=== PATIENT | female | born 1945 | race Caucasian/White ===

== ENCOUNTER 2018-08-09 12:36 | Inpatient (IN) | payer OTHER ==
[~2018-08-09] VITALS: Ht 165.1 cm; Wt 78.0 kg
[2018-08-09 12:37] VITALS: BP 143/83
[2018-08-09 13:07] LABS: ABSOLUTE EOSINOPHILS 0.1 thou/uL (0.0-0.7); ABSOLUTE MONOCYTES 0.5 thou/uL (0.0-1.2); ABSOLUTE NEUTROPHILS 7.9 thou/uL (1.6-8.1); HEMATOCRIT 31.6 % (37.0-47.0); HEMOGLOBIN 10.2 gm/dL (12.0-15.0); LYMPHOCYTES 10.1 %; MCH 26.8 pg (26.0-34.0); MCHC 32.2 g/dL (28.0-37.0); MCV 83.2 fL (80.0-100.0); MONOCYTES 5.4 %; MPV 7.8 fl. (7.2-11.1); NUCLEATED RBCS 0 /100WBC; PLATELET COUNT* 554 thou/uL (150-400); POLYS 83.5 %; RDW-CV 19.3 % (10.5-14.5); WBC 9.4 thou/uL (4.0-11.0)
[2018-08-09] MEDS ORDERED: LOSARTAN-HCTZ1 EAC3 PO (13:10)
[2018-08-09] MEDS ORDERED: BREO ELLIPTA 11 EACH INH (13:10)
[2018-08-09] MEDS ORDERED: INCRUSE ELLI62.5 MCG INH (13:11)
[2018-08-09 13:15] LABS: INR 1.4; PROTIME 13.9 Seconds (9.20-11.50)
[2018-08-09 13:16] LABS: ANION GAP 5 mmol/L (7-16); BUN 16 mg/dL (7-18); CALCIUM 9.6 mg/dL (8.5-10.1); CHLORIDE 95 mmol/L (98-107); CO2 34 mmol/L (21-32); GLUCOSE 106 mg/dL (70-99); POTASSIUM 3.5 mmol/L (3.5-5.1); SODIUM 134 mmol/L (136-145)
[2018-08-09] MEDS ORDERED: XARELTO15 MG PO (13:22)
[2018-08-09] MEDS ORDERED: FLOMAX0.4 MG PO (13:22)
[2018-08-09] MEDS ORDERED: XARELTO20 MG PO (13:22)
[2018-08-09] MEDS ORDERED: CLOTRIMAZOLE10 MG PO (13:23)
[2018-08-09] MEDS ORDERED: IPRAT-ALBUT 0.5-3 ML INH (13:24)
[2018-08-09] MEDS ORDERED: TESSALON PERLE100 MG PO (13:25)
[2018-08-09] MEDS ORDERED: MAGIC MOUTHWASH SWISH&SPIT (13:25)
[2018-08-09] MEDS ORDERED: TYLENOL EXTRA500 MG PO (13:26)
[2018-08-09] MEDS ORDERED: FLORASTOR250 MG PO (13:26)
[2018-08-09 13:27] LABS: ALBUMIN 3.2 g/dL (3.4-5.0); ALKALINE PHOSPHATASE 79 U/L (46-116); LIPASE 183 U/L (73-393); MAGNESIUM 1.8 mg/dL (1.8-2.4); NT-PRO BRAIN NAT PEPTIDE 78 pg/mL (<300); SGOT 24 U/L (15-37); SGPT 25 U/L (30-65); TOTAL BILIRUBIN 0.4 mg/dL (<0.1-1.0); TOTAL PROTEIN 7.2 g/dL (6.4-8.2); TROPONIN-I LEVEL <0.06 ng/mL (<0.06)
[2018-08-09] MEDS ORDERED: LIDOCAINE 2% PO (13:32)
[2018-08-09 14:32] VITALS: BP 120/61
[2018-08-09 15:22] VITALS: BP 132/60
[2018-08-09] MEDS ORDERED: BISCOLAX10 MG RECTAL (15:37)
[2018-08-09] MEDS ORDERED: HYDROCHLOROTHIA25 M2 PO (15:38)
[2018-08-09] MEDS ORDERED: MILK OF MA2400 MG/10 PO (15:38)
[2018-08-09] MEDS ORDERED: OXYCODONE HCL 55 MG PO (15:39)
[2018-08-09] MEDS ORDERED: VENTOLIN HFA 1818 GM INH (15:40)
[2018-08-09 16:00] VITALS: BP 129/64
--- NOTE | 2018-08-09 16:08 | NUR ---
RECIEVIED REPORT FROM JET RN IN ER OF EXPECTED ADMISSION AT 1425-DX: CHEST PAIN- PT ARRIVED TO ROOM 213 VIA BED AT 1500- ASSIST X1 TO BED FOR TRANSFER- PT A&O X4, ANXIOUS AT TIMES- CONTINENT VS INCONTINENT OF BOWEL AND BLADDER- STATES OCCASSIONAL BOWEL ACCIDENT R/T FREQUENT STOOLS LATELY- DIMINISHED LUNG SOUNDS NOTED, NON-PRODUCTIVE COUGH NOTED- VS 97.6 18 132/60 91 92% ON RA- ABD SOFT/ROUND/OBESE, BS X4 QUADS- LAST BM REPORTED THIS AM- IV NOTED TO LEFT HAND INTACT AND SL- TRACE EDEMA NOTED TO BLE- RECENT RIGHT HIP SURGERY NOTED EARLY JUL AT [facility], DRESSING NOTED TO RIGHT UPPPER THIGH DATED 08/07/18- PT STATES PAIN TO RIGHT HIP /10, UPPER MID ABD /10, AND MOUTH 10/10- REPORTS TO BE SENSATIVE TO NARCOTICS, PERFERS TYLENOL FOR PAIN- REDNESS NOTED TO BOTTOM WITH PICTURES OBTAINED AND PLACED ON CHART FOR VIEWING-HAS READING GLASSES AT BED SIDE- CARDIOLOGY CONSULTED AND HERE TO SEE PT SHORTLY AFTER ADMISSION- CALL LIGHT AND PERSONAL BELONGINGS WITH IN REACH- ISOLATION IN PLACE INDICATED R/T REPORTED LOOSE STOOLS, AWAITING STOOL SAMPLE- HOURLY ROUNDS IN PLACE R/T SAFETY/NEEDS- ALL NEEDS MET AT THIS TIME-WCTM
--- NOTE | 2018-08-09 17:19 | EKG ---
[place] [address] ELECTROCARDIOGRAM REPORT Name: JULIO PERES Room: [address] ADM IN M.R.#: [id number] Admission: 08/09/18 Attend Phys: Al Polk MD Discharge: Date of : 41 Report #: [id number] THIS REPORT FOR: //name// [facility] ED Test Date: 2018-08-09 Test Time: 12:40:11 Pat Name: JULIO PERES Department: Room: [facility] Gender: Route Sales Representative: Sharath SIMON : 1945 Requested By: Jose Yu Order Number: [id number] MD: Christiano Hardin Measurements Intervals [place] Rate: 96 P: 42 AL: 146 QRS: -12 QRSD: 88 T: 61 QT: 356 QTc: 450 Interpretive Statements Sinus rhythm Abnormal R-wave progression, late transition No previous ECG available for comparison Electronically Signed On 08-09-2018 17:19:26 DECORATING AND ASSEMBLY SUPERVISOR by Christiano Hardin [email or web address] <ELECTRONICALLY SIGNED> By: Christiano Hardin MD, [facility] 08/09/18 1719 1240 1240 Christiano Hardin MD, FAC /EPI
[2018-08-09 20:00] VITALS: BP 115/63
[2018-08-10] VITALS: BP 131/65
[2018-08-10 00:48] LABS: ABSOLUTE EOSINOPHILS 0.3 thou/uL (0.0-0.7); ABSOLUTE LYMPHOCYTES 1.8 thou/uL (0.8-5.3); ABSOLUTE MONOCYTES 0.7 thou/uL (0.0-1.2); BASOPHILS 0.3 %; HEMATOCRIT 29.6 % (37.0-47.0); HEMOGLOBIN 9.4 gm/dL (12.0-15.0); LYMPHOCYTES 20.5 %; MCH 26.6 pg (26.0-34.0); MCHC 31.8 g/dL (28.0-37.0); MCV 83.7 fL (80.0-100.0); MONOCYTES 7.9 %; MPV 8.1 fl. (7.2-11.1); NUCLEATED RBCS 0 /100WBC; PLATELET COUNT* 516 thou/uL (150-400); POLYS 68.3 %; RBC 3.53 mil/uL (4.20-5.00); WBC 8.8 thou/uL (4.0-11.0)
[2018-08-10 01:08] LABS: CALCIUM 10.1 mg/dL (8.5-10.1); CREATININE 1.1 mg/dL (0.6-1.3); POTASSIUM 4.1 mmol/L (3.5-5.1)
[2018-08-10 04:10] VITALS: BP 152/76
--- NOTE | 2018-08-10 04:38 | NUR ---
RECIEVED REPORT AND ASSUMED CARE AT 1900. AUTOMATION AND CONTROLS MANAGER IN PLACE. VITAL SIGNS STABLE. PT UP WITH STANDBY ASSIST. PT STATED SHE HAD ABD PAIN IN RIGHT HIP 02/16 BUT HAD JUST HAD HER TYLENOL AND REFUSED TO TAKE ANYTHING ELSE TO HELP WITH PAIN. ASSESSMENT COMPLETED, DISCUSSED PLAN OF CARE, PT UNDERSTANDS. BED LOCKED AND CALL LIGHT WITHIN REACH. FALL PRECAUTIONS IN PLACE. HOURLY ROUNDING DONE AND ALL NEEDS MET. NURSING WILL CONTINUE TO MONITOR.
[2018-08-10 08:00] VITALS: BP 141/63
--- NOTE | 2018-08-10 11:12 | NUR ---
8964 ASSUMED CARE OF PATIENT. PLEASE SEE DOCUMENTED ASSESSMENT. PATIENT IS IN SINUS RHYTHM AND HAS SOME RIGHT THORAX DISCOMFORT BUT NO CHEST PAIN. GOAL IS TO INCREASE ACTIVITY AND OBTASIN STOOL SPECIMEN
--- NOTE | 2018-08-10 11:26 | NUR ---
Nutrition: Consult recieved for "unknown." Pt admitted with chest pain. HTN stable. H/o COPD. Diarrhea better. 2gm Na diet ordered. Albumin 3.2. Pressure ulcer on coccyx noted. RD ordered Micha b.i.d. to aid in wound healing. Consider Mild to Low risk.
[2018-08-10 12:07] VITALS: BP 140/79
[2018-08-10 14:00] VITALS: BP 116/63
--- NOTE | 2018-08-10 15:44 | NUR ---
SPOKE TO THE PATIENT TO DISCUSS HER HOME SITUATION, DISCHARGE PLANNING, AND TO INFORM OF THE ROLE OF CM. 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 PATIENT OWNS 2 WALKERS THAT WERE GIVEN TO HER BY HER DTRS. PATIENT HAS NO HX OF HH. PATIENT ADMITTED FROM [facility]. PATIENT INFORMS THAT SHE DOES NOT WISH TO RETURN TO [facility], 'THEY DID NOT PROVIDE ENOUGH P.T.' THERE, AND THE 'CARE WAS INCONSISTENT'. PATIENT REQUEST TO BE ABLE TO GO TO THE INPATIENT REHAB UNIT. PILOT PLANT TECHNICIAN NOTIFIED. CM WILL REMAIN AVAILABLE TO ASSIST AND FOLLOW NEEDED.
--- NOTE | 2018-08-10 15:45 | NUR ---
CM updated Pt that she does not have a qualifying acute rehab dx. CM inquired into if Pt would want to return to [facility], Pt stated "I'm not sure what I want to do, whether I will go back or home with HH." CM to f/u with Pt tomorrow regarding disposition.
--- NOTE | 2018-08-10 17:51 | NUR ---
PATIENT PROGRESSING TOWARDS GOALS. CARDIOLGY HAS NO FURTHER PLANS FOR TESTING. STOOL SENT FOR CDIFF AND PENDING. MEDICATIONS ADJUSTED. UP IN ROOM AND WORKED WITH THERAPIES. USES OXYGEN PRN FOR COMFORT. HEART RHYTHM IS OCCASIONALLY SINUS TACHYCARDIA
[2018-08-10 19:05] VITALS: BP 134/73
--- NOTE | 2018-08-10 22:40 | NUR ---
ASSESSMENT COMPLETE, REFER TO COMPUTER CHARTING FOR DETAILS. VSS. PT DOES REPORT ANXIETY. PT UP TO BSC WITH SBA AND WALKER. TRACING SR-ST ON MONITOR. HOURLY ROUNDING FOR PT SAFETY, CLWR.
[2018-08-11 00:12] VITALS: BP 130/81
[2018-08-11 04:11] VITALS: BP 158/53
[2018-08-11 08:36] VITALS: BP 133/62
[2018-08-11 12:00] VITALS: BP 109/70
[2018-08-11 16:00] VITALS: BP 136/58
--- NOTE | 2018-08-11 17:57 | NUR ---
pt pain managed well with tylenol. pt up in chair for most of day. dressing to r hip cdi. denies chest pain or soa. can appear to be anxious at times about going home vs rehab. pt able to make needs known, call light in reach
[2018-08-11 20:00] VITALS: BP 131/53
[2018-08-12] VITALS: BP 122/59
[2018-08-12 04:00] VITALS: BP 117/59
[2018-08-12 05:08] LABS: HEMATOCRIT 28.5 % (37.0-47.0); HEMOGLOBIN 9.4 gm/dL (12.0-15.0); MCH 27.2 pg (26.0-34.0); MCHC 32.8 g/dL (28.0-37.0); MCV 82.9 fL (80.0-100.0); MPV 8.4 fl. (7.2-11.1); RBC 3.44 mil/uL (4.20-5.00); RDW-CV 18.9 % (10.5-14.5); WBC 7.1 thou/uL (4.0-11.0)
[2018-08-12 05:21] LABS: CALCIUM 9.2 mg/dL (8.5-10.1); CREATININE 1.2 mg/dL (0.6-1.3); MAGNESIUM 1.9 mg/dL (1.8-2.4); POTASSIUM 3.3 mmol/L (3.5-5.1)
--- NOTE | 2018-08-12 06:19 | NUR ---
ASSUMED PATIENT CARE AT 1900. PATIENT ALERT AND ORIENTED TIMES FOUR. O2 IN PLACE. MINOR COMPLAINTS OF PAIN, CONTROLLED WITH ORAL MEDICATION. HOURLY ROUNDING AND ELECTROLESS PLATER COMPLETED DOCUMENTED
[2018-08-12 08:08] VITALS: BP 133/61
[2018-08-12 11:55] VITALS: BP 107/57
--- NOTE | 2018-08-12 12:26 | NUR ---
PT ADMITTED FROM ED WITH CHEST PAIN THAT STARTED YESTERDAY AFTERNOON. PT CURRENTLY DESCRIBES BURNING EPIGASTRIC PAIN 5/10 THAT IS WORSE AFTER SHE EATS. PT SAYS THE PAIN STABS STRAIGHT THROUGH TO BACK. TELE SR, HRR. PT UP INDEPENDENTLY IN ROOM. PT ABLE TO MAKE NEEDS KNOWN, CALL LIGHT IN REACH
--- NOTE | 2018-08-12 18:39 | NUR ---
PAIN MANAGED WELL WITH TYLENOL ORDERED. PT UP IN CHAIR FOR SHORT PERIODS TODAY, REPORTS FEELING TIRED. DRESSING TO R HIP CDI. NO DRAINAGE NOTED. PT ABLE TO MAKE NEEDS KNOWN, CALL LIGHT IN REACH
[2018-08-12 20:00] VITALS: BP 116/53
[2018-08-13] VITALS: BP 114/64
--- NOTE | 2018-08-13 03:42 | NUR ---
ASSUMED PT CARE AT 1930. ASSESSMENT COMPLETED CHARTED. ABLE TO MAKE NEEDS KNOWN. C/O LEG AND HIP PAIN, MOSTLY WHEN STANDING. GAVE PRN PAIN MEDICATION PER P.O. PT RESTING IN BED AT THIS TIME. WILL CONTINUE TO MONITOR.
[2018-08-13 05:08] LABS: CALCIUM 9.2 mg/dL (8.5-10.1); CREATININE 1.1 mg/dL (0.6-1.3); POTASSIUM 3.8 mmol/L (3.5-5.1)
[2018-08-13 08:18] VITALS: BP 125/71
[2018-08-13 10:46] VITALS: BP 125/71
[2018-08-13 12:33] VITALS: BP 124/72
--- NOTE | 2018-08-13 13:58 | NUR ---
ATTEMPTED TO SEE PT. FOR TREATMENT SESSION, PT. STATES SHE IS NAUSEATED AND REQUESTED THERAPY TO COME BACK. WILL RE-ATTEMPT TODAY.
--- NOTE | 2018-08-13 15:34 | NUR ---
PT WAS INFORMED OF DC HOME WITH HH THIS AM AFTER DR PEREYRA. PT C/O PAIN IN R LEG THAT WAS NOT BEING CONTROLLED BY TYLENOL AND PT FELT SHE WOULD NOT BE ABLE TO MUCH OF ANYTHING TODAY PHYSICALLY, WHICH PT SAID IS THE ONLY THING SHE WOULD TAKE. THIS NURSE EXPLAINED PAIN MANAGEMENT TO PT AND SUGGESTED TRYING A STRONGER PAIN MED THAT WAS ORDERED TO GET PAIN UNDER CONTROL AGAIN. PT WAS GIVEN PAIN MED AND TRANSFERRED TO [facility] WITH SBA. ON REASSESSMENT, PT SAID THE PAIN WAS GONE AND SHE FELT MUCH BETTER. P.T WENT IN TO WORK WITH PT ON STAIRS BEFORE DC HOME AND PT C/O NAUSEA TO P.T. NURSE GAVE PT NAUSEA MED AND PT C/O FEELING DIZZY AND COUGH. PT REQUESTED BREATHING TX AND TOLD NURSE ABOUT HX OF VERTIGO IN PAST BUT THIS FELT 'DIFFERENT' LIKE SHE HAD NO CONTROL OF WHAT SHE WAS DOING. PT SPOKE IN COMPLEATE CLEAR SENTENCES AND WAS COHERENT.
--- NOTE | 2018-08-13 16:23 | NUR ---
PT INFORMED OF DC HOME THIS AM BY . PT THEN TOLD NURSE AFTER C/O PAIN AND GIVEN PAIN MED THAT SHE WAS UNSURE IF SHE COULD GO BECAUSE THE PAIN MED MADE HER FEEL 'DIFFERENT'. PT REASSURED THAT MED EFFECTS WOULD WEAR OFF AND PT WOULD FEEL MORE LIKE SELF. P.T. WENT TO WORK WITH PT ON STAIRS. P.T. REPORTED TO NURSE THAT PT REPORTED FEELING DIZZY AND WEAK AND P.T. WOULD HOLD OFF UNTIL AFTER LUNCH. NURSE WENT INTO ROOM AND PT SAID SHE FELT DIZZY AND SOMETIMES HAS THIS FEELING AT HOME, BUT NOT IN A LONG TIME. NURSE TOLD PT THAT SHE WOULD MAKE THE DR AWARE AND CHECK BACK IN A LITTLE WHILE. O.T. REPORTED TO NURSE THAT PT WAS FEELING NAUSEATED. NURSE WENT INTO ROOM TO ASK PT IF SHE WANTED NAUSEA MED. PT WAS TEXTING ON PHONE AND TOLD NURSE SHE WAS TEXTING ON PHONE. PT APPEARED DROWSY BUT ANSWERED QUESTIONS AND PARTICIPATED IN CONVERSATION APPROPRIATELY. NURSE ASKED PT IF SHE WOULD BE READY TO GO HOME AND PT RESPONDED THAT SHE WASN'T SURE BECAUSE SHE FELT WEIRD FROM THE PAIN MED AND WASN'T ABLE TO DO MUCH. DR AND GASPER WAS INFORMED OF PT C/O AND PT DID NOT WANT TO GO HOME. NURSE REASSESSED PT LATER AND PT STATED NAUSEA MED HAD WORKED. PT THEN ASKED ABOUT TRANSPORTATION AND PT SAID SHE WAS UNDER THE IMPRESSION SHE WAS STAYING ANOTHER DAY BECAUSE SOMEONE (THIS NURSE) HAD ASKED IF THEY WERE READY TO GO HOME. PT HAD ARRANGED FOR ONE OF HER KIDS TO PICK HER UP TOMORROW. NURSE EXPLAINED DISCHARGE IS PLANNED FOR TODAY AND OTHER TRANSPORTATION CAN BE ARRANGED. PT DID STAIRS WITH P.T. AND REPORTEDLY DID WELL. CM AND NURSE WENT INTO ROOM TO EXPLAIN DC. PT THEN WAS TOLD THAT SHE WAS MEDICALLY CLEARED TO BE DC'D HOME AND PT REFUSED REPEATING THAT NO ONE WOULD BE ABLE TO GET HER, SHE HAS NO KEYS TO APARTMENT, HAD A 'SET-BACK' RELATED TO THE PAIN MED EARLIER, AND DECIDED TO APPEAL DC WHEN TALKING WITH NURSE AND CM. NURSE OFFERED TO CALL FAMILY FOR DC AND PT REFUSED. DC REPEAL EXLAINED TO PT. MADE AWARE.
--- NOTE | 2018-08-13 16:26 | NUR ---
Pt medically stable to dc to home today with HH, dc orders written. Per Pt, she plans to dc to her kid's home, so that she does not have to worry about manuevering the stairs in her home. HH to be arranged with [facility], initial referral sent and [facility] is able to accept at dc. GASPER informed Pt that wrote dc orders, Pt stated that she is not ready to dc home today, prefers tomorrow. requested that PT work with Pt prior to dc to ensure that Pt can safely dc to home. PT worked with Pt, per PT, Pt did "fantastic." GASPER informed Pt that she does not have acute rehab dx and that at this point, she is too high functioning for skilled, GASPER informed that the only option is for Pt to dc to home with HH. Pt continued to adamently refuse to dc today. GASPER provided Pt with a copy of her "Important Letter from Medicare about your Rights," Pt opted to appeal her discharge. CM to remain available through disposition.
[2018-08-13 16:58] VITALS: BP 141/77
--- NOTE | 2018-08-13 18:34 | NUR ---
FAMILY HERE TO GET PT. PT HAS DECIDED TO DC HOME WITH HH.
--- NOTE | 2018-08-13 18:43 | NUR ---
PAPER WORK RE SENT TO [facility]. PT TO BE DISCHARGED.PT REQUESTING A WALKER. SHE REPORTS " I NEED 2 AT HOME". INSTRUCTED PT TO DISCUSS WITH HH TOMORROW
== END 2018-08-13 18:50 | disposition home health service (06) | DRG 313 ==
LOC: M.ERS 12:36 → M.TBA-ER 13:56 → M.2W 13:56
PROVIDERS: Emergency Medicine Emergency Medical Services; Family Medicine; ADMIT Internal Medicine
DX: R07.89 Other chest pain (principal); J98.11 Atelectasis; E44.1 Mild protein-calorie malnutrition; M16.11 Unilateral primary osteoarthritis, right hip; I10 Essential (primary) hypertension; J44.9 Chronic obstructive pulmonary disease, unspecified; M19.90 Unspecified osteoarthritis, unspecified site; E87.6 Hypokalemia; E83.42 Hypomagnesemia; Z88.6 Allergy status to analgesic agent; Z88.8 Allergy status to other drugs, medicaments and biological substances; Z79.82 Long term (current) use of aspirin; Z79.899 Other long term (current) drug therapy; Z68.28 Body mass index [BMI] 28.0-28.9, adult

== ENCOUNTER 2020-12-04 07:41 | Observation (INO) | payer MEDICARE ==
[~2020-12-04] VITALS: Ht 154.9 cm; Wt 84.3 kg
[2020-12-04] VITALS (16 sets, daily range): BP systolic 122–157; BP diastolic 57–88
--- NOTE | ~2020-12-04 | D ---
[address] [address] DISCHARGE SUMMARY Name: JULIO PERES Room: [address] Cyndy M.RJared#: [id number] Admission: 12/04/20 Attend Phys: Vance Torres MD, Discharge: Date of : 41 Report #: [id number] THIS REPORT FOR: cc: Arpita Alejandra MD, Emily G. MD Holkins,Vance Dias MD [facility] ~ DOC #: [id number] Vance Torres MD [facility] DATE OF DISCHARGE: 12/05/2020 FINAL DISCHARGE DIAGNOSES: 1. Abnormal nuclear stress test. 2. Coronary artery disease. 3. Status post PCI of the obtuse marginal branch and the circumflex. 4. Hyperlipidemia. 5. Hypertension. 6. Exogenous obesity. PROCEDURES: On 12/04/2020 -- left heart catheterization, left ventriculography, selective coronary arteriography, and percutaneous coronary intervention with deployment of sequential drug-eluting stents in the prominent first marginal branch of the circumflex. HOSPITAL COURSE: The patient is a pleasant 75-year-old female with a number of risk factors for coronary artery disease including hypertension and hyperlipidemia. She recently had an abnormal nuclear stress test with inducible anterolateral ischemia. The patient has noted dyspnea on exertion, which has been progressive. She has been compliant with the medical regimen including fluticasone, inhaled albuterol, aspirin, diltiazem, hydrochlorothiazide, Imdur, losartan and vitamin D as well as the furosemide. In the context of the abnormal stress test, I performed cardiac catheterization on 12/04/2020. That study revealed a significant single vessel disease with 80% tubular calcified stenosis of the prominent first marginal branch of the circumflex. There were no significant left main or LAD stenosis. There was a 40% proximal-mid and 40% distal right coronary narrowing. LV function was normal. Estimated ejection fraction of 60-65%. Given this data, I elected to perform percutaneous coronary intervention, deploying 2 drug-eluting stents, 2.5 x 18 mm [place] and 2.5 x 15 [place] [address] DISCHARGE SUMMARY Name: JAJULIO S Room: [address] M.R.#: [id number] Admission: 12/04/20 Attend Phys: Vance Torres MD, Discharge: Date of : 41 Report #: [id number] sequentially covering the tubular, circumflex narrowing was 0% residual narrowing and JUDY 3 flow to the distal vessel postprocedurally. She did well postprocedurally. There was a minimal increase in troponin I to 0.24. Additional labs revealed a hemoglobin of 12.9, white blood cell count 12,400 with 332,000 platelets. Sodium 139, potassium 3.6, BUN 24, creatinine 1.1. Cholesterol 224, LDL 122, triglycerides 334 mg%. The patient ambulated in the hallways without difficulty. She was discharged to home on 12/05 on the following medications: Fluticasone 1 inhalation each nostril daily, Tylenol ES 500 one tablet as needed for pain, albuterol sulfate 2 puffs every 6 hours for wheezing, aspirin 81 mg daily, diltiazem extended release 120 mg daily, hydrochlorothiazide 25 mg daily, Imdur 30 mg daily, losartan 100 mg daily, vitamin D2 50 mcg of 50,000 units weekly, and prasugrel 10 mg daily with a 60 mg periprocedural dose having been given. Furosemide was discontinued. DISCHARGE INSTRUCTIONS: The patient was discharged home in stable condition. There will be a followup with Dr. Barnes in 4-6 weeks. The case and outcomes were discussed with Dr. Barnes after the procedure on 12/04. Therefore, the patient is discharged home in stable condition on the aforementioned medications with followup as described above. Vance Torres MD [facility] JMH/RAN By: [id number] Torres MD, [facility] /nt
[~2020-12-04 07:41] MED LIST: ADULT LOW DOSE81 MG PO; BISCOLAX10 MG RECTAL; BREO ELLIPTA 11 EACH INH; CLOTRIMAZOLE10 MG PO; COZAAR100 MG PO; DILTIAZEM ER120 MG PO; FLOMAX0.4 MG PO; FLORASTOR250 MG PO; HYDROCHLOROTHIA25 M1 PO; HYDROCHLOROTHIA25 M2 PO; IMDUR 30 MG TAB30 M1 PO; INCRUSE ELLI62.5 MCG INH; IPRAT-ALBUT 0.5-3 ML INH; LASIX 20 MG TAB20 MG PO; LIDOCAINE 2% PO; LOSARTAN-HCTZ1 EAC3 PO; MAGIC MOUTHWASH SWISH&SPIT; MILK OF MA2400 MG/10 PO; OXYCODONE HCL 55 MG PO; TESSALON PERLE100 MG PO; TYLENOL EXTRA500 MG PO; VENTOLIN HFA 1818 GM INH; VITAMIN D250 MCG PO; XARELTO15 MG PO; XARELTO20 MG PO
[2020-12-04 09:01] LABS: HEMATOCRIT 42.8 % (37.0-47.0); HEMOGLOBIN 14.1 gm/dL (12.0-15.0); MCH 27.7 pg (26.0-34.0); MCV 83.9 fL (80.0-100.0); MPV 8.2 fl. (7.2-11.1); RBC 5.1 mil/uL (4.20-5.00); RDW-CV 18.6 % (10.5-14.5); WBC 11.9 thou/uL (4.0-11.0)
[2020-12-04 09:11] LABS: ANION GAP 8 mmol/L (7-16); BUN 35 mg/dL (7-18); CALCIUM 9.1 mg/dL (8.5-10.1); CHLORIDE 97 mmol/L (98-107); CO2 35 mmol/L (21-32); CREATININE 1.4 mg/dL (0.6-1.3); GLUCOSE 174 mg/dL (70-99); POTASSIUM 3.2 mmol/L (3.5-5.1); SODIUM 140 mmol/L (136-145)
[2020-12-04 09:14] LABS: APTT 23.7 Seconds (25.0-31.3); INR 0.9
[2020-12-04 09:15] LABS: ALBUMIN 3.8 g/dL (3.4-5.0); ALKALINE PHOSPHATASE 99 U/L (46-116); CHOLESTEROL 224 mg/dL (<200); HDL CHOLESTEROL 36 mg/dL (>40); LDL CHOLESTEROL 122 mg/dL (<100); SERUM ASSESSMENT Clear; SGOT 10 U/L (15-37); SGPT 17 U/L (30-65); TC:HDL 6.2 Ratio (Not establshd); TOTAL BILIRUBIN 0.2 mg/dL (<0.1-1.0); TRIGLYCERIDE 334 mg/dL (<150); VLDL 67 mg/dL (<40)
--- NOTE | 2020-12-04 11:33 | EKG ---
[place] [address] ELECTROCARDIOGRAM REPORT Name: JAJULIO Shruthi Room: [address] M.R.#: [id number] Admission: 12/04/20 Attend Phys: Van Olvera Discharge: Date of : 41 Date of Service: 12/04/20920 Report #: [id number] THIS REPORT FOR: //name// [facility] Test Date: 2020-12-04 Test Time: 09:21:24 Pat Name: JULIO PEERS Department: Room: [facility] Gender: F Seismic Survey Assistant: : 1945 Requested By: Vance Torres Order Number: [id number] Reading MD: Vance Torres Measurements Intervals [place] Rate: 81 P: 55 GA: 170 QRS: -12 QRSD: 90 T: 44 QT: 402 QTc: 467 Interpretive Statements Sinus rhythm Abnormal R-wave progression, late transition Borderline T wave abnormalities Compared to ECG 08/09/2018 12:40:11 T-wave abnormality now present Electronically Signed On 12-04-2020 11:33:45 CDT by Vance Torres [email or web address] <ELECTRONICALLY SIGNED> By: Vance Torres MD, [facility] 12/04/20 1133 0 0 Vance Torres MD, [facility] /EPI
--- NOTE | 2020-12-04 11:34 | EKG ---
[place] [address] ELECTROCARDIOGRAM REPORT Name: JAJULIO Shruthi Room: [address] M.R.#: [id number] Admission: 12/04/20 Attend Phys: Van Olvera Discharge: Date of : 41 Date of Service: 12/04/20 1121 Report #: [id number] THIS REPORT FOR: //name// [facility] Test Date: 2020-12-04 Test Time: 11:21:11 Pat Name: JULIO PERES Department: Room: [facility] Gender: F Steamboat Pilot: : 1945 Requested By: Vance Torres Order Number: [id number] Reading MD: Vance Torres Measurements Intervals [place] Rate: 75 P: MA: QRS: -18 QRSD: 99 T: 34 QT: 460 QTc: 514 Interpretive Statements Sinus rhythm Borderline left axis deviation Abnormal R-wave progression, late transition Prolonged QT interval Compared to ECG 12/04/2020 09:21:24 Prolonged QT interval now present T-wave abnormality no longer present Electronically Signed On 12-04-2020 11:34:27 CDT by Vance Torres [email or web address] <ELECTRONICALLY SIGNED> By: Vance Torres MD, [facility] 12/04/20 1134 1121 1121 Vance Torres MD, FAC /EPI
--- NOTE | 2020-12-04 14:03 | CARD ---
[address] [address] CARDIAC CATH REPORT Name: JULIO PERES Room: [address] Cyndy Stanley#: [id number] Admission: 12/04/20 Attend Phys: Vance Torres MD, Discharge: Date of : 41 Report #: [id number] THIS REPORT FOR: cc: Arpita Alejandra MD, Emily G. MD Holkins,Vance Dias MD [facility] ~ APPROVED REPORT Study performed: 12/04/2020 09:21:55 Patient Details Patient Status: Out-Patient Room #: The patient is a 75 year-old female Event Personnel Vance Torres Drafter Structural, Olga Rangel RN RN, James Leigh RTR Scrub, Roya Morales RTR Monitor Procedures Performed Art Access - R femoral artery Left Heart Cath w/or w/o Coronaries MIRTA Place w/wo Plasty Single OM Hemostasis w/ Angioseal Indication Positive stress test Risk Factors Hypercholesterolemia, Hypertension Admission/Lab Medications/Medications given during procedure Oxygen Nasal cannula 2 l per min, 0.9% Sodium Chloride IV 200 ml per hr, Lidocaine Subcut 14 ml, Angiomax IV 12 ml, Angiomax Drip IV 28.6 ml per hr, Nitroglycerin IC 150 mcg, Aspirin PO 162 mg, Effient PO 60 mg Procedure Narrative The patient was brought electively to the Cardiac Catheterization Laboratory and was prepped and draped in a sterile manner. The right femoral was infiltrated with 2% Lidocaine subcutaneous anesthesia. IV conscious sedation was used throughout procedure with appropriate monitoring and was performed in the presence of a registered nurse who was an independent trained observer other than the physician performing the procedure. A [place] 6 FR sheath was inserted into the right femoral artery. Coronary angiography [place] [address] CARDIAC CATH REPORT Name: JULIO PERES Room: [address] Cyndy Stanley#: [id number] Admission: 12/04/20 Attend Phys: Vance Torres MD, Discharge: Date of : 41 Report #: [id number] coronary diagnostic catheters. The right coronary system was accessed and visualized with a Diagnostic 6 Fr JR 4 catheter. The left coronary system was accessed and visualized with a Diagnostic 6 Fr JL 4 catheter. The left ventricle was accessed and visualized with a Diagnostic 6 Fr Pigtail catheter. Left ventricular/Aortic Valve gradient assessed via catheter pullback. Left ventriculogram was performed in [place]O projection. Pre-demployment femoral angiogram was performed . Closure device was deployed with a Fr Angioseal STS 6Fr. The patient tolerated the procedure well and there were no complications associated with the procedure. There was no hematoma. Intraoperative Conscious Sedation Sedation start time: 950 Case end Time: 1050 Versed 2 mg Fluoro Time: 15.4 minutes Dose: DAP [id number] cGycm2 2760 mGy Contrast Type and Amount: Visipaque 320 ml Diagnostic Cath Left Main 0% narrowing LAD 30% mid vessel narrowing Circumflex 80% stenosis of the prominent first marginal branch of the nondominant circumflex Right Coronary 40% diffuse mid right coronary narrowing with 40% distal right coronary stenosis Left Ventriculography The left ventricle is normal in size with normal contractility. The left ventricular ejection fraction is estimated to be 65%. Left ventricular wall motion abnormalities are not present. There is no mitral insufficiency. Hemodynamics The aortic pressure is 143/61 mmHg with a mean of 91 mmHg. The left ventricular pressure is 137/7 mmHg with a mean of mmHg. The left ventricular end diastolic pressure is 15 mmHg. There was no gradient across the aortic valve upon pullback. PCI Technique Lesion Anticoagulation was achieved with Angiomax Drip. Patient was preloaded with Angiomax IV 12 ml. Percutaneous coronary intervention was performed on the first marginal branch of [place] [address] CARDIAC CATH REPORT Name: JULIO PERES Room: [address]#: [id number] Admission: 12/04/20 Attend Phys: Vance Torres MD, Discharge: Date of : 41 Report #: [id number] lesion stenosis prior to intervention was 80% with JUDY 3 flow. A 6FR XB 3.5 100CM Guide Catheter was used to engage the left ostium. A IG: BMW 190cm Interventional Guidewire was used to cross the lesion. BALLOON DILATION A Balloon catheter Trek RX 2.5 X 15 was inserted and inflated up to 12.00atm for 9seconds. Additional Inflation: 14.00atm for 10seconds. STENT DEPLOYMENT A drug-eluting stent Eder RX Stent 2.5X18mm was inserted and inflated up to 12.00atm for 9seconds. Additional Inflation: 12.00atm for 10seconds. A drug-eluting stent [place] RX Stent 2.5 x 15 mm was inserted and inflated up to 10 DARREN for 9 seconds and 12 DARREN for 8 seconds. POST STENT DEPLOYMENT BALLOON DILATION A Balloon catheter NC Trek RX 2.5 X 12 was inserted and inflated up to 16.00atm for 9seconds. Additional Inflation: 17.00atm for 8seconds. Additional Inflation: 12.00atm for 8seconds. The balloon catheter NC Trek RX 2.5 X 12 was reinserted and inflated up to 16 DARREN for 9 seconds, 18 DARREN for 9 seconds, and 19 DARREN for 7 seconds. Final angiography reveals 0 % stenosis with JUDY 3 flow. Conclusion 1. Significant coronary artery disease characterized by the following: A 30% mid LAD narrowing B 80% calcified stenosis of the first marginal branch of the nondominant circumflex C dominant right coronary artery with 40% diffuse mid vessel narrowing and 40% distal stenosis 2. Normal left ventricular systolic function, estimated ejection fraction 65% 3. Mild elevation of left ventricular end-diastolic [place] [address] CARDIAC CATH REPORT Name: JULIO PERES Room: [address] Cyndy Stanley#: [id number] Admission: 12/04/20 Attend Phys: Vance Torres MD, Discharge: Date of : 41 Report #: [id number] 4. Successful PCI with deployment of sequential drug-eluting stents at the site of 80% stenosis in the first marginal branch of the circumflex with 0% residual narrowing and JUDY-3 flow to the distal vessel Recommendations Cardiac Risk Reduction Program Aggressive Medical Therapy Medications Administered Aspirin (any) Prasugrel Diagnostic Cath Approved by: Vance Torres MD Date/Time: 12/04/2020 14:01:00 <ELECTRONICALLY SIGNED> By: Vance Torres MD, [facility] 12/04/20 1402 140 1402Vance Torres MD, FAC /INF
--- NOTE | 2020-12-04 14:07 | NUR ---
STAT EKG OBTAINED DUE TO PT C/O MIDSTERNAL/EPIGASTRIC "FULLNESS" DISCOMFORT. PT STATES "IT FEELS LIKE THERES A TIGHT BAND AROUND MY CHEST." NO CHANGE NOTED IN COMPARISON TO PREVIOUS POST-PROCEDURE EKG. PT PLACED ON BEDPAN AT THIS TIME TO ATTEMPT TO EMPTY BLADDER.
--- NOTE | 2020-12-04 14:30 | NUR ---
POST HEART CATH TO RM 211 VIA CART TELEPHONE REPORT GIVEN PRIOR TO ARRIVAL ASSISTED TO BED FROM CART R GROIN SITE C/D/I NO HEMATOMA VS STABLE NO C/O PAIN C/O FULLNESS AND TIGHTNESS ABDOMEN BLADDER DISTENDED BLADDER SCANNED AND SHOWS 110CC CÁRDENAS PLACED WILL CONTINUE TO MONITOR
--- NOTE | 2020-12-04 14:32 | EKG ---
[place] [address] ELECTROCARDIOGRAM REPORT Name: JULIO PERES Room: [address] M.R.#: [id number] Admission: 12/04/20 Attend Phys: Van Olvera Discharge: Date of : 41 Date of Service: 12/04/20 1357 Report #: [id number] THIS REPORT FOR: //name// [facility] Test Date: 2020-12-04 Test Time: 13:57:34 Pat Name: JULIO PERES Department: Room: [place] [address] Gender: F Form Carpenter: : 1945 Requested By: Vance Torres Order Number: [id number] Reading MD: Vance Torres Measurements Intervals [place] Rate: 75 P: 63 MD: 163 QRS: -23 QRSD: 87 T: 33 QT: 437 QTc: 489 Interpretive Statements Sinus rhythm Borderline left axis deviation Abnormal R-wave progression, late transition Borderline T abnormalities, anterior leads Borderline prolonged QT interval Baseline wander in lead(s) II,III,aVR,aVF,V5 Compared to ECG 12/04/2020 11:21:11 No significant interval change Electronically Signed On 12-04-2020 14:32:13 CDT by Vance Torres [email or web address] <ELECTRONICALLY SIGNED> By: Vance Torres MD, [facility] 12/04/20 1432 1357 1357 Vance Torres MD, [facility] /EPI
[2020-12-05 00:58] VITALS: BP 130/61
[2020-12-05 03:58] VITALS: BP 136/59
[2020-12-05 04:39] LABS: HEMATOCRIT 39.1 % (37.0-47.0); HEMOGLOBIN 12.7 gm/dL (12.0-15.0); MCH 27.7 pg (26.0-34.0); MCHC 32.6 g/dL (28.0-37.0); MCV 85.1 fL (80.0-100.0); MPV 8.2 fl. (7.2-11.1); RBC 4.59 mil/uL (4.20-5.00); RDW-CV 18.8 % (10.5-14.5); WBC 12.4 thou/uL (4.0-11.0)
[2020-12-05 04:55] LABS: ALBUMIN 3.3 g/dL (3.4-5.0); CALCIUM 8.3 mg/dL (8.5-10.1); CREATININE 1.1 mg/dL (0.6-1.3); POTASSIUM 3.6 mmol/L (3.5-5.1); TOTAL BILIRUBIN 0.4 mg/dL (<0.1-1.0); TOTAL PROTEIN 6.9 g/dL (6.4-8.2); TROPONIN-I LEVEL 0.24 ng/mL (<0.06)
--- NOTE | 2020-12-05 07:14 | NUR ---
ASSUMED CARE OF PATIENT AT 1930. PATIENT A&o X 4. AT ASSESSMENT PATIENT REQUEST IV BE REMOVED. INFORMED PATIENT THAT WOULD NOT BE ABLE TO REMOVE IV UNTIL DISCHARGE IN CASE MEDICATION WOULD NEED TO BE ADMINISTERED VIA IV. LATER IN NOC DIMENSIONAL INTEGRATION ENGINEER INFORMED NURSE THAT PATIENT HAD PULLED IV OUT ON ACCIDENT WHILE USING RESTROOM. PATIENT REFUSED NEW IV
[2020-12-05 08:12] VITALS: BP 125/78
--- NOTE | 2020-12-05 08:24 | NUR ---
NIGHT RN REPORTS THAT PT PULLED OUT IV AND REFUSED A NEW ONE TO BE PLACED.
[2020-12-05] MEDS ORDERED: EFFIENT10 MG PO (09:33)
[2020-12-05 10:46] VITALS: BP 125/78
== END 2020-12-05 11:00 | disposition home or self-care (01) ==
LOC: M.CL 07:41 → M.2W 11:12 → M.TBA-CV 11:12 → M.2W 14:32
PROVIDERS: ADMIT Internal Medicine; ATTEND Internal Medicine
DX: I25.10 Atherosclerotic heart disease of native coronary artery without angina pectoris (principal); I10 Essential (primary) hypertension; E78.5 Hyperlipidemia, unspecified; E66.01 Morbid (severe) obesity due to excess calories; Z79.82 Long term (current) use of aspirin; Z79.899 Other long term (current) drug therapy